=== PATIENT | male | born 1990 | race Caucasian/White ===

== ENCOUNTER 2019-05-25 14:22 | Emergency (ER) | payer OTHER ==
[~2019-05-25] VITALS: Ht 175.3 cm; Wt 77.3 kg
--- NOTE | 2019-05-25 15:04 | REP ---
Clinical: Trauma. Technique: AP, lateral, bilateral oblique views of right foot . Findings: The osseous structures and joint spaces are intact and normal. There is no evidence for acute fracture or dislocation. Surrounding soft tissues are unremarkable. No subcutaneous emphysema or radiodense foreign body. Impression: Normal right foot series . No acute fracture or dislocation. Electronically Signed by Pedro Shin MD 05/25/2019 02:56 P
[2019-05-25 15:48] VITALS: BP 134/65
== END 2019-05-25 15:45 | disposition home or self-care (01) ==
LOC: M ED 14:22
DX: S90.31XA Contusion of right foot, initial encounter (principal); W20.8XXA Other cause of strike by thrown, projected or falling object, initial encounter; Y99.1 Military activity